=== PATIENT | male | born 1965 | race Caucasian/White ===

== ENCOUNTER 2019-05-01 15:43 | Emergency (ER) | payer OTHER ==
[~2019-05-01] VITALS: Ht 172.7 cm; Wt 86.2 kg
[2019-05-01] MEDS ORDERED: NKM (16:11)
[2019-05-01 16:41] VITALS: BP 176/94
[2019-05-01 17:50] VITALS: BP 160/94
--- NOTE | 2019-05-01 17:50 | NUR ---
ER DISCHARGE NOTE: Patient is cleared to be discharged per ERMD, pt is aox4, on room air, with stable vital signs. pt was given dc and prescription instructions, pt was able to verbalize understanding, pt id band removed without complications. pt is able to ambulate with steady gait. pt took all belongings.
--- NOTE | 2019-05-01 19:14 | NUR ---
ED Nurse Note: pt ermd eval done pt provided with referals food and clothes . feet cleaned and wraped.
--- NOTE | 2019-05-01 19:48 | Emergency Room Report ---
History of Present Illness General Chief Complaint: General Complaint Source: Patient Present Illness HPI 53-year-old male presents ED for evaluation. Patient states he is here for wound check. Status post bilateral TMA done at [facility] 1 month ago. Was placed in a recuperative care but states that he got into argument with members and was discharged. Patient states that he is concerned if his wounds are infected. Does not know when he supposed to go back for suture removal. Denies pain. Denies fevers or chills. Patient walks with bilateral walking boots. No other aggravating relieving factors. Denies any other associated symptoms Allergies: Coded Allergies: METFORMIN (Verified Allergy, Unknown, 05/01/19) Patient History Past Medical History: psych hx Past Surgical History: other - bilateral TMA Pertinent Family History: none Social History: Denies: smoking, alcohol use, drug use Immunizations: UTD Reviewed Nursing Documentation: PMH: Agreed; PSxH: Agreed Nursing Documentation-PMH Hx Hypertension: Yes History Of Psychiatric Problem: Yes - ocd, bipolar Review of Systems All Other Systems: negative except mentioned in HPI Physical Exam Vital Signs Date Time Temp Pulse Resp B/P (MAP) Pulse Ox O2 Delivery O2 Flow Rate FiO2 05/01/19 16:05 98.8 104 16 176/94 (121) 98 Room Air Sp02 EP Interpretation: reviewed, normal General Appearance: no apparent distress, alert, GCS 15, non-toxic Head: normocephalic, atraumatic Eyes: bilateral eye normal inspection, bilateral eye PERRL ENT: hearing grossly normal, normal pharynx, no angioedema, normal voice Neck: full range of motion, supple/symm/no masses Respiratory: chest non-tender, lungs clear, normal breath sounds, speaking full sentences Cardiovascular #1: regular rate, rhythm, no edema Cardiovascular #2: 2+ carotid (R), 2+ carotid (L), 2+ radial (R), 2+ radial (L) , 2+ dorsalis pedis (R), 2+ dorsalis pedis (L) Gastrointestinal: normal bowel sounds, non tender, soft, non-distended, no guarding, no rebound Rectal: deferred Genitourinary: normal inspection, no CVA tenderness Musculoskeletal: back normal, gait/station normal, normal range of motion, other - s/p bilateral TMA Neurologic: alert, oriented x3, responsive, motor strength/tone normal, sensory intact, speech normal Psychiatric: judgement/insight normal, memory normal, mood/affect normal, no suicidal/homicidal ideation Reflexes: 3+ bicep (R), 3+ bicep (L), 3+ tricep (R), 3+ tricep (L), 3+ knee (R) , 3+ knee (L) Skin: other - bilateral TMA; suture line C/D/I. sutures in place. no erythema/ induration. no discharge Lymphatic: no adenopathy Medical Decision Making Homeless Attestation I, The treating physician Dr. Gregory, have assessed and agrees that patient is medically stable for discharge to an outpatient disposition. Diagnostic Impression: Primary Impression: Visit for wound check ER Course Hospital Course 53 yo M presents to ED for wound check. s/p bilateral TMA Clinical course Patient placed on stretcher. dressings removed. Suture line is clean and intact. No erythema or induration. No discharge. Sutures in place. I discussed this with the patient. I explained that he needs to follow-up with the surgeon at [facility] who performed the TMA for reevaluation and suture removal. it does not appear at this time that the sutures are ready to be removed regardless xeroform/dressings reapplied to both legs. Homeless checklist completed. Safe for discharge with close outpatient follow-up. I will provide referrals Diagnosis - visit for wound check Stable and discharged to home. wound care instructions given. Followup with PMD/ surgery Return to ED if any signs of infection develop Last Vital Signs Date Time Temp Pulse Resp B/P (MAP) Pulse Ox O2 Delivery O2 Flow Rate FiO2 05/01/19 17:50 98.8 99 16 160/94 98 Room Air Status: improved Disposition: HOME, SELF-CARE Condition: Stable Referrals: Mar[facility] Siddiqu[facility] Patient Instructions: Wound Check Additional Instructions: you will require followup with the surgeon at [facility] for re- evaluation and suture removal. Jose Gregory MD May 01, 2019 19:48
== END 2019-05-01 17:50 | disposition home or self-care (01) ==
LOC: EMR 16:32
DX: Z48.01 Encounter for change or removal of surgical wound dressing (principal); Z89.432 Acquired absence of left foot; Z89.431 Acquired absence of right foot; Z88.8 Allergy status to other drugs, medicaments and biological substances; I10 Essential (primary) hypertension; F31.9 Bipolar disorder, unspecified
CPT/HCPCS: 99282